=== PATIENT | male | born 1995 | race Caucasian/White ===

== ENCOUNTER 2021-01-11 11:39 | Emergency (ER) | payer OTHER ==
[2021-01-11 11:50] VITALS: BP 135/95; PULSE 78; TEMP 98; BMI 37.3
[2021-01-11] MEDS ORDERED: IBUPROFEN 600 MG TABLET (FP) PO ONE ×2 (12:19→12:37)
== END 2021-01-11 12:52 | disposition home or self-care (01) ==
LOC: JER 11:39 → JERFT 11:39
PROC: 2W3QX1Z Immobilization of Right Lower Leg using Splint (ICD-10-PCS; principal; 2021-01-11)
DX: S82.891A Other fracture of right lower leg, initial encounter for closed fracture (principal); W18.42XA Slipping, tripping and stumbling without falling due to stepping into hole or opening, initial encounter; Y92.9 Unspecified place or not applicable
CPT/HCPCS: 73610-TC-RT-FY; 73630-TC-RT-FY; 99284-25